=== PATIENT | female | born 1995 | race Caucasian/White ===

== ENCOUNTER 2021-03-13 17:00 | Emergency (ER) | payer SELFPAY ==
[~2021-03-13] VITALS: Ht 170.2 cm; Wt 68.0 kg
[2021-03-13 17:09] VITALS: BP 112/73
== END 2021-03-13 17:18 | disposition left against medical advice (07) ==
LOC: ER 17:02
DX: R10.31 Right lower quadrant pain (principal); Z53.21 Procedure and treatment not carried out due to patient leaving prior to being seen by health care provider